=== PATIENT | female | born 1950 | race Caucasian/White ===

== ENCOUNTER 2022-12-07 06:21 | Emergency (ER) | payer OTHER, MEDICAID ==
[~2022-12-07] VITALS: Ht 160 cm; Wt 77.1 kg
[2022-12-07 06:24] VITALS: BP 183/96
--- NOTE | 2022-12-07 06:35 | NUR ---
PT TRIAGED, THEN SENT TO GIVE URINE SAMPLE AND THEN BACK TO THE LOBBY
[2022-12-07] MEDS ORDERED: LORazepam 1 MG TAB PO ONE (07:35)
[2022-12-07] MEDS ORDERED: ATA25 PO (07:41)
[2022-12-07] MEDS ORDERED: OMEP40EC24 PO (07:41)
[2022-12-07 08:13] VITALS: BP 167/81
--- NOTE | 2022-12-07 08:13 | NUR ---
Patient discharged with v/s stable. Written and verbal after care instructions ABOUT NAUSEA AND PANIC ATTACK given and explained. Patient alert, oriented and verbalized understanding of instructions. Ambulatory with steady gait. All questions addressed prior to discharge. ID band removed. Patient advised to follow up with PMD. Rx of ATARAX HCL AND PRILOSEC given. Patient educated on indication of medication including possible reaction and side effects. Opportunity to ask questions provided and answered.
[2022-12-07 09:36] LABS: APPEARANCE,URINE CLEAR (CLEAR); BILIRUBIN,URINE NEGATIVE (NEGATIVE); BLOOD, URINE NEGATIVE (NEGATIVE); COLOR,URINE YELLOW (YELLOW); LEUKOCYTE ESTERASE ,URINE NEGATIVE (NEGATIVE); NITRITE, URINE NEGATIVE (NEGATIVE); UGLUCOSE NEGATIVE (NEGATIVE)
== END 2022-12-07 08:13 | disposition home or self-care (01) ==
LOC: MED 06:21
DX: F41.9 Anxiety disorder, unspecified (principal); R07.9 Chest pain, unspecified; R10.9 Unspecified abdominal pain; R11.0 Nausea; I10 Essential (primary) hypertension; Z88.5 Allergy status to narcotic agent; Z88.8 Allergy status to other drugs, medicaments and biological substances; Z79.899 Other long term (current) drug therapy; Z98.890 Other specified postprocedural states
CPT/HCPCS: 81003; 99284